=== PATIENT | male | born 2000 | race African-American/Black ===

== ENCOUNTER 2020-10-02 12:10 | Emergency (ER) | payer OTHER, SELFPAY ==
[2020-10-02] MEDS ORDERED: Ondansetron ODT 4 MG TAB ONE (13:15)
[2020-10-03 04:13] LABS: SARS-CoV-2 PCR by NAA Not Detected (NotDetected)
== END 2020-10-02 13:20 | disposition home or self-care (01) ==
LOC: BURERS 12:10
DX: A08.4 Viral intestinal infection, unspecified (principal); Z20.822 Contact with and (suspected) exposure to COVID-19
CPT/HCPCS: 87635; 99284; Q0162; U0003; U0005